=== PATIENT | female | born 1960 | race Caucasian/White ===

== ENCOUNTER → 2022-02-14 | Outpatient (CLI) | payer BC, SELFPAY ==
--- NOTE | 2022-02-14 07:46 | MRI_ITS ---
STUDY: MRI RIGHT SHOULDER REASON FOR EXAM: Female, 61 years old. FELL ONTO R SHOULDER, DECREASED ROM X 3 WEEKS TECHNIQUE: Standardized fat and water weighted pulse sequences were obtained in all 3 orthogonal planes. COMPARISON: None. FINDINGS: There is supraspinatus tendinosis with tendon thickening, but without a demonstrated tendon tear. Normal infraspinatus tendon. There is a 1.0 cm full-thickness tear of the distal subscapularis tendon, series 2 images 11/06 through 02/05. Normal teres minor tendon. Normal supraspinatus muscle. Normal infraspinatus muscle. Normal subscapularis muscle. Normal teres minor muscle. Normal glenohumeral articulation. There is moderate joint effusion. Normal humeral head and visualized proximal humerus. There is tear of the biceps anchor . There is subluxation of the intracapsular long biceps tendon from the bicipital groove. Normal labrum. Normal capsulo- ligamentous complex. Normal rotator interval. There is mild osteoarthritis of the acromioclavicular articulation. There is a Type II morphology (curved) acromion, with a neutral orientation. There is moderate subacromial-subdeltoid bursal fluid. Normal visualized coracohumeral and coracoacromial ligaments. Normal quadrilateral space. Normal axillary space. Normal deltoid muscle. Normal trapezius muscle. MRI/Upper Ext Joint Only(Routine) IMPRESSION: Rotator cuff tear of the subscapularis tendon. Tear of the biceps anchor with subluxation of the long head of the biceps tendon. Joint effusion. Subacromial subdeltoid bursitis. Electronically Signed: Husam Valenzuela MD at 21:10 EST ,
== END | disposition home or self-care (01) ==
PROVIDERS: Referring Provider Orthopaedic Surgery; Visit Provider Orthopaedic Surgery
DX: S43.51XA Sprain of right acromioclavicular joint, initial encounter (principal); W19.XXXA Unspecified fall, initial encounter
CPT/HCPCS: 73221